=== PATIENT | female | born 1990 | race Caucasian/White ===

== ENCOUNTER 2022-09-08 18:34 | Emergency (ER) | payer OTHER ==
[2022-09-08] MEDS ORDERED: Bacitracin Oint 1 GM U/D Packet TOP ONE (19:59)
[2022-09-08] MEDS ORDERED: Lidocaine 1% 5 ML VIAL INJECT ONE (19:59)
== END 2022-09-08 20:57 | disposition home or self-care (01) ==
LOC: JP.ED 18:34
DX: S61.214A Laceration without foreign body of right ring finger without damage to nail, initial encounter (principal); S61.216A Laceration without foreign body of right little finger without damage to nail, initial encounter; W25.XXXA Contact with sharp glass, initial encounter
CPT/HCPCS: 12001; 99282